=== PATIENT | male | born 1970 | race Caucasian/White ===

== ENCOUNTER 2017-12-09 08:24 | Day surgery (SDC) | payer OTHER ==
[2015-08-03 07:54] VITALS: BMI 29.9
[2017-12-09] MEDS ORDERED: Lactated Ringer's 500 ML IV ONE (08:56)
[2017-12-09] MEDS ORDERED: Benzocaine/Butamben/Tetracai 14-2-2% TOP Spray TOP ONE (10:54)
[2017-12-09] MEDS ORDERED: Propofol 10 mg/ml Inj (20 ML) ONE (10:54)
[2017-12-09 11:37] VITALS: BP 129/67; PULSE 59; RESP 14; TEMP 97; O2SAT 100
== END 2017-12-09 08:25 | disposition home or self-care (01) ==
LOC: H.ENDO 08:24 → EDSTATUS 14:00
PROVIDERS: ATTEND Internal Medicine Gastroenterology
DX: K30 Functional dyspepsia (principal); E78.5 Hyperlipidemia, unspecified; R10.13 Epigastric pain; K29.50 Unspecified chronic gastritis without bleeding
CPT/HCPCS: 43239; 88305; J2001; J2704; J7120